=== PATIENT | female | born 1955 | race Caucasian/White ===

== ENCOUNTER 2016-10-01 08:05 | Emergency (ER) | payer MEDICARE, OTHER ==
[~2016-10-01] VITALS: Ht 162.6 cm; Wt 68.0 kg
[~2016-10-01 08:05] MED LIST: METH5SOL3 PO; NEUR300C PO; ORPH100T PO
[2016-10-01 08:06] VITALS: BP 159/72; PULSE 74; RESP 20; TEMP 97.8; O2SAT 96
--- NOTE | 2016-10-01 08:16 | PD ---
HPI . Left index finger laceration 1 hour ago Chief Complaint: Laceration/Skin Injury Time Seen by Provider: 08:16 Travel History International Travel<30 days: No Contact w/Intl Traveler<30days: No Traveled to known affect area: No History of Present Illness HPI 60-year-old female who is right-hand dominant with history of COPD, hypertension and chronic pain here with complaints of a left index finger laceration sustained one hour ago while cutting a ham. Patient tells me that she had recently sharpened her knife yesterday and started cutting the ham and accidentally sliced her finger. She is up-to-date on her tetanus shot. She complains of pain to the dorsum of her left index finger in between the metacarpal phalangeal joint and the proximal interphalangeal joint. She has full range of motion of all her digits. She has no other complaints. She is accompanied by her significant other. PFS Past Medical History Cardiovascular Problems: Yes (ABNORMAL ATRIAL WALL PER PT) COPD: Yes Diminished Hearing: No Hypertension: Yes Social History Alcohol Use: No Tobacco Use: Yes (1 PPD) Substance Use: No Allergies-Medications (Allergen,Severity, Reaction): Coded Allergies: No Known Allergies (Verified , 10/21/10) Reported Meds & Prescriptions Reported Meds & Active Scripts Active Neurontin (Gabapentin) 300 Mg Cap 300 Mg PO BID Norflex (Orphenadrine Citrate) 100 Mg Elijah 100 Mg PO BIDPRN Reported Methadone Hcl (Methadone HCl) 5 Mg/5 Ml Audrey 30 Mg PO DAILY Review of Systems General / Constitutional: No: Fever Eyes: No: Visual changes HENT: No: Headaches Cardiovascular: No: Chest Pain or Discomfort Respiratory: No: Shortness of Breath Gastrointestinal: No: Abdominal Pain Genitourinary: No: Dysuria Musculoskeletal: No: Pain Skin: Positive Other (finger laceration ), No Rash Neurologic: No: Weakness Psychiatric: No: Depression Endocrine: No: Polydipsia Hematologic/Lymphatic: No: Easy Bruising Physical Exam Narrative GENERAL: AAO x 3, no acute distress, Well-nourished, well-developed patient. SKIN: Warm and dry. No visible rashes or bruising. Small 1.4 cm laceration to the dorsum of the left hand index finger: proximal to the PIP joint and distal to the metacarpal phalangeal joint. HEAD: Normocephalic and atraumatic. EYES: No scleral icterus. No injection or drainage. ENT: No nasal drainage noted. Airway patent. NECK: Supple, trachea midline. No JVD. CARDIOVASCULAR: Regular rate and rhythm without murmurs, gallops, or rubs. RESPIRATORY: Breath sounds equally diminished bilaterally. No accessory muscle use. No rhonchi or rales. GASTROINTESTINAL: Visual inspection is normal. EXTREMITIES: No cyanosis or edema. All digits have full range of motion. No tendon or vessel damage seen in the site of the laceration. BACK: Nontender without obvious deformity. No CVA tenderness. PSYCH: AAO x 3, normal affect. Data Data Last Documented VS Vital Signs Date Time Temp Pulse Resp B/P Pulse Ox O2 Delivery O2 Flow Rate FiO2 10/01/16 08:06 97.8 74 20 159/72 96 Room Air Orders Lidocaine 1% Inj (50 Ml) (Xylocaine 1% I (10/01/16 08:30) MDM Medical Decision Making Medical Screen Exam Complete: Yes Emergency Medical Condition: Yes Medical Record Reviewed: Yes Differential Diagnosis Laceration left index finger, abrasion, less likely finger fracture Narrative Course 60-year-old female who is right-hand dominant with history of COPD, hypertension and chronic pain here with complaints of a left index finger laceration sustained one hour ago while cutting a ham. Patient tells me that she had recently sharpened her knife yesterday and started cutting the ham and accidentally sliced her finger. She is up-to-date on her tetanus shot. She complains of pain to the dorsum of her left index finger in between the metacarpal phalangeal joint and the proximal interphalangeal joint. She has full range of motion of all her digits. She has no other complaints. She is accompanied by her significant other. Patient seen and examined. She has a small 1.4 cm laceration to the dorsum of her left index finger. She consented to repair with sutures. Patient tolerated without incident. 4 simple interrupted sutures were placed to the laceration. I advise removal in 7-10 days. We discussed cleaning with soap and water and general wound care principles. She was warned of signs of infection. Patient verbalized understanding of instructions, questions were answered, and thanked me for their care. I advised them if their condition worsens, please return to the nearest emergency room for further care. Procedures Procedure Narrative LACERATION LOCATION: Left index finger dorsum LENGTH: 1.4 cm NUMBER OF STITCHES/VIVEK: 4 REPAIR: The area of the laceration was prepped with Betadine and sterilely draped. The laceration was infiltrated with 1% lidocaine digital block. The wound was copiously irrigated and explored without evidence of foreign body, tendon injury or neurovascular injury. The wound was closed using 4-0 Ethilon. This was a single layer repair. A sterile dressing was applied. The patient was advised to keep the dressing clean and dry. Patient tolerated the procedure well. Diagnosis Primary Impression: Laceration of left index finger Patient Instructions: Acute Wound Care (ED), Finger Laceration (ED), General Instructions Additional Instructions: Wash the area with soap and water as we discussed. Keep area clean and dry. Use gauze as we discussed and change 1-2 times a day. Watch for signs of infection: fever, redness, swelling, warmth, pus or drainage , red streaks around the cut, and increased pain from the area. If you received a tetanus shot, you may experience tenderness at the injection site. This is normal. The sutures (4) will need to be removed in 7-10 days. Please come back to the emergency room to have them removed. Med/Other Pt SpecificInfo: No Change to Meds Disposition: 01 DISCHARGE HOME Condition: Stable Samantha Burns Oct 01, 2016 08:16
[2016-10-01] MEDS ORDERED: LIDOCAINE HCL 1% 50 ML VIAL INFIL ONE (08:30)
== END 2016-10-01 08:51 | disposition home or self-care (01) ==
LOC: NEPK 08:05
DX: S61.211A Laceration without foreign body of left index finger without damage to nail, initial encounter (principal); I10 Essential (primary) hypertension; J44.9 Chronic obstructive pulmonary disease, unspecified; F17.210 Nicotine dependence, cigarettes, uncomplicated; W26.0XXA Contact with knife, initial encounter; Y93.G1 Activity, food preparation and clean up; Y92.009 Unspecified place in unspecified non-institutional (private) residence as the place of occurrence of the external cause; Y99.8 Other external cause status
CPT/HCPCS: 12001